=== PATIENT | male | born 1950 | race Caucasian/White ===

== ENCOUNTER → 2017-01-21 | Outpatient (CLI) | payer MEDICARE, OTHER | END | disposition home or self-care (01) | LOC: CFH 09:45 | PROVIDERS: ATTEND Internal Medicine Cardiovascular Disease | DX: Z12.2 Encounter for screening for malignant neoplasm of respiratory organs (principal); I35.8 Other nonrheumatic aortic valve disorders; I25.10 Atherosclerotic heart disease of native coronary artery without angina pectoris; I10 Essential (primary) hypertension; R91.1 Solitary pulmonary nodule; F17.211 Nicotine dependence, cigarettes, in remission; J84.10 Pulmonary fibrosis, unspecified | CPT/HCPCS: 93306; G0297 ==

== ENCOUNTER 2017-03-14 12:28 | Day surgery (SDC) | payer MEDICARE, OTHER ==
[2017-03-14] MEDS ORDERED: OMEP-110 PO (13:00)
[2017-03-14] MEDS ORDERED: MULT-658 PO (13:00)
[2017-03-14] MEDS ORDERED: ALLO300T PO (13:00)
[2017-03-14] MEDS ORDERED: APIX5TAB PO (13:00)
[2017-03-14] MEDS ORDERED: LISI-170 PO (13:00)
[2017-03-14] MEDS ORDERED: LACTATED RINGERS 1,000 ML IV SCH (13:03)
[2017-03-14] MEDS ORDERED: LIDOCAINE 1%, 2ML SQ PRN (13:30)
[2017-03-14] MEDS ORDERED: EPINEPHRINE SYRINGE 0.1 MG/ML, 10ML ONE (13:40)
[2017-03-14] MEDS ORDERED: INDOCYANINE GREEN 25 MG VIAL ONE (13:40)
[2017-03-14] MEDS ORDERED: FENTANYL PF 100 MCG/2ML ONE (13:42)
[2017-03-14] MEDS ORDERED: MIDAZOLAM 1 MG/ML, 2ML ONE ×2 (13:42→14:19)
[2017-03-14] MEDS ORDERED: EPHEDRINE 50 MG/ML, 1ML ONE (13:45)
[2017-03-14 13:50] LABS: BLOOD UREA NITROGEN 23 mg/dL (7-18)
[2017-03-14 13:54] LABS: ASPARTATE AMINO TRANSFERASE 17 U/L (15-37)
[2017-03-14] MEDS ORDERED: EPHEDRINE 50 MG/ML, 1ML IVPush PRN (14:00)
[2017-03-14] MEDS ORDERED: OXYcodone 5 MG/5 ML ORAL.SOL UDC PO PRN (14:00)
[2017-03-14] MEDS ORDERED: HYDROmorphone 1 MG/ML, 1ML IV PRN (14:00)
[2017-03-14] MEDS ORDERED: ONDANSETRON 2MG/ML, 2ML IVPush PRN (14:00)
[2017-03-14] MEDS ORDERED: HYDROcodone/APAP 7.5-325MG/15ML UDC PO PRN (14:00)
[2017-03-14] MEDS ORDERED: LABETALOL 5MG/ML, 20ML IV PRN (14:00)
[2017-03-14] MEDS ORDERED: hydrALAzine 20 MG/ML, 1ML IV PRN (14:00)
[2017-03-14] MEDS ORDERED: FENTANYL PF 100 MCG/2ML IV PRN (14:00)
[2017-03-14] MEDS ORDERED: MEPERIDINE/PF 25MG/0.5ML IVPush PRN (14:00)
[2017-03-14] MEDS ORDERED: PLEASE ENTER HEIGHT AND WEIGHT MC SCH (14:00)
[2017-03-14] MEDS ORDERED: METOPROLOL 1 MG/ML, 5ML IV PRN (14:00)
[2017-03-14] MEDS ORDERED: ALBUTEROL SULFATE 2.5 MG/3 ML NPPB PRN (14:00)
[2017-03-14] MEDS ORDERED: METOCLOPRAMIDE 5 MG/ML, 2ML IV PRN (14:00)
[2017-03-14] MEDS ORDERED: ACETAMINOPHEN 325 MG TABLET PO PRN (14:00)
[2017-03-14] MEDS ORDERED: DEXAMETHASONE 4 MG/ML, 1ML ONE (14:01)
[2017-03-14] MEDS ORDERED: ONDANSETRON 2MG/ML, 2ML ONE (14:01)
[2017-03-14] MEDS ORDERED: SUCCINYLCHOLINE 20 MG/ML, 10ML ONE (14:02)
[2017-03-14] MEDS ORDERED: PROPOFOL 10 MG/ML, 20ML ONE (14:02)
[2017-03-14] MEDS ORDERED: ROCURONIUM 10 MG/ML,10ML ONE (14:02)
== END 2017-03-14 15:55 ==
LOC: OUT 12:28
PROVIDERS: ATTEND Internal Medicine Gastroenterology
DX: K22.711 Barrett's esophagus with high grade dysplasia (principal); K44.9 Diaphragmatic hernia without obstruction or gangrene; K21.9 Gastro-esophageal reflux disease without esophagitis; Z98.890 Other specified postprocedural states; Z90.49 Acquired absence of other specified parts of digestive tract; Z87.891 Personal history of nicotine dependence; Z72.89 Other problems related to lifestyle
CPT/HCPCS: 36415; 43236; 43254; 43270; 80053; 88305; 93005; J0330; J1100; J2250; J2405; J2704; J3010

== ENCOUNTER 2017-06-20 06:48 | Day surgery (SDC) | payer MEDICARE, OTHER ==
[~2017-06-20] VITALS: Ht 182.9 cm; Wt 124.4 kg
[~2017-06-20 06:48] MED LIST: ALLO300T PO; APIX5TAB PO; LISI-170 PO; MULT-658 PO; OMEP-110 PO
[2017-06-20] MEDS ORDERED: LACTATED RINGERS 1,000 ML IV SCH (07:18)
[2017-06-20] MEDS ORDERED: WARF7.5T PO (07:33)
[2017-06-20 07:34] VITALS: BP 131/83
[2017-06-20] MEDS ORDERED: PROPOFOL 10 MG/ML, 20ML ONE ×3 (07:42→08:16)
[2017-06-20] MEDS ORDERED: FENTANYL PF 100 MCG/2ML ONE (08:49)
[2017-06-20] MEDS ORDERED: ACETAMINOPHEN 650 MG/20.3 ML UDC ONE (08:49)
[2017-06-20] MEDS ORDERED: OXYcodone 5 MG/5 ML ORAL.SOL UDC ONE (08:50)
[2017-06-20] MEDS: FENTANYL PF 100 MCG/2ML IV PRN ×2 (08:54→09:04)
[2017-06-20] MEDS ORDERED: morphine SULFATE 10 MG/ML, 1ML IV PRN (09:00)
[2017-06-20] MEDS ORDERED: ONDANSETRON 2MG/ML, 2ML IVPush PRN (09:00)
[2017-06-20] MEDS ORDERED: ACETAMINOPHEN 325 MG TABLET PO PRN (09:00)
[2017-06-20] MEDS ORDERED: OXYcodone 5 MG/5 ML ORAL.SOL UDC PO PRN (09:00)
== END 2017-06-20 10:18 ==
LOC: OUT 06:48
PROVIDERS: ATTEND Internal Medicine Gastroenterology
DX: K22.70 Barrett's esophagus without dysplasia (principal); K44.9 Diaphragmatic hernia without obstruction or gangrene; K21.9 Gastro-esophageal reflux disease without esophagitis; I10 Essential (primary) hypertension; Z90.49 Acquired absence of other specified parts of digestive tract; Z72.89 Other problems related to lifestyle; Z98.890 Other specified postprocedural states; Z87.891 Personal history of nicotine dependence; Z79.899 Other long term (current) drug therapy; I25.10 Atherosclerotic heart disease of native coronary artery without angina pectoris
CPT/HCPCS: 43229; J2704; J3010; J7120

== ENCOUNTER 2017-09-26 05:40 | Day surgery (SDC) | payer MEDICARE, OTHER ==
[~2017-09-26] VITALS: Ht 182.9 cm; Wt 119.0 kg
[~2017-09-26 05:40] MED LIST changes: +WARF7.5T PO
[2017-09-26] MEDS ORDERED: LACTATED RINGERS 1,000 ML IV SCH (06:04)
[2017-09-26 06:05] VITALS: BP 105/78
[2017-09-26 06:57] LABS: INTERNATIONAL NORMALIZED RATIO 0.97 (0.93-1.1)
[2017-09-26 07:04] LABS: ALANINE AMINOTRANSFERASE 30 U/L (12-78); ALBUMIN 3.6 g/dL (3.4-5.0); ANION GAP 7 mmol/L (5-15); CALCIUM 8.9 mg/dL (8.5-10.1); CHLORIDE 109 mmol/L (98-107); CREATININE 1.51 mg/dL (0.7-1.3)
[2017-09-26 07:05] LABS: ALKALINE PHOSPHATASE 86 U/L (45-117); BILIRUBIN,TOTAL 0.4 mg/dL (0.2-1.0); TOTAL PROTEIN 6.7 g/dL (6.4-8.2)
[2017-09-26] MEDS ORDERED: PROPOFOL 50 ML ONE (07:30)
[2017-09-26] MEDS ORDERED: FENTANYL PF 100 MCG/2ML ONE (07:30)
[2017-09-26] MEDS ORDERED: ONDANSETRON ODT 8 MG PO PRN (08:00)
[2017-09-26] MEDS ORDERED: ALBUTEROL SULFATE 2.5 MG/3 ML NPPB PRN (08:00)
[2017-09-26] MEDS ORDERED: FENTANYL PF 100 MCG/2ML IV PRN (08:00)
[2017-09-26] MEDS ORDERED: HYDROmorphone 2 MG/ML, 1ML IV PRN (08:00)
[2017-09-26] MEDS ORDERED: ACETAMINOPHEN 325 MG TABLET PO PRN (08:00)
[2017-09-26] MEDS ORDERED: LABETALOL 5MG/ML, 20ML IV PRN (08:00)
[2017-09-26] MEDS ORDERED: hydrALAzine 20 MG/ML, 1ML IV PRN (08:00)
[2017-09-26] MEDS ORDERED: OXYcodone 5 MG/5 ML ORAL.SOL UDC PO PRN (08:00)
== END 2017-09-26 09:20 | disposition home or self-care (01) ==
LOC: OUT 05:40
PROVIDERS: ATTEND Internal Medicine Gastroenterology
DX: K22.70 Barrett's esophagus without dysplasia (principal); K21.0 Gastro-esophageal reflux disease with esophagitis; Z86.718 Personal history of other venous thrombosis and embolism
CPT/HCPCS: 36415; 43239; 43270; 80053; 85610; 88305; 93005; J2704; J3010; J7120

== ENCOUNTER 2018-03-27 05:13 | Day surgery (SDC) | payer MEDICARE, OTHER ==
[~2018-03-27] VITALS: Ht 182.9 cm; Wt 126.1 kg
[2018-03-27] MEDS ORDERED: LACTATED RINGERS 1,000 ML IV SCH (06:05)
[2018-03-27] MEDS ORDERED: LISI-167 PO (06:05)
[2018-03-27] MEDS ORDERED: LACT1CAP35 PO (06:05)
[2018-03-27 06:06] VITALS: BP 112/77
[2018-03-27 06:40] LABS: INTERNATIONAL NORMALIZED RATIO 0.98 (0.93-1.1); PROTHROMBIN TIME 10.4 Seconds (9.6-11.5)
[2018-03-27 06:43] LABS: ALANINE AMINOTRANSFERASE 30 U/L (12-78); ALBUMIN 3.6 g/dL (3.4-5.0); ANION GAP 8 mmol/L (5-15); CALCIUM 8.6 mg/dL (8.5-10.1); CHLORIDE 112 mmol/L (98-107); CREATININE 1.32 mg/dL (0.7-1.3)
[2018-03-27 06:45] LABS: ALKALINE PHOSPHATASE 82 U/L (45-117); BILIRUBIN,TOTAL 0.6 mg/dL (0.2-1.0); TOTAL PROTEIN 6.7 g/dL (6.4-8.2)
[2018-03-27] MEDS ORDERED: FENTANYL PF 100 MCG/2ML ONE (06:51)
[2018-03-27] MEDS ORDERED: MIDAZOLAM 1 MG/ML, 2ML ONE (06:51)
[2018-03-27] MEDS ORDERED: PROPOFOL 10 MG/ML, 20ML ONE ×2 (06:52)
[2018-03-27] MEDS ORDERED: FENTANYL PF 100 MCG/2ML IV PRN (07:30)
[2018-03-27] MEDS ORDERED: LABETALOL 5MG/ML, 20ML IV PRN (07:30)
[2018-03-27] MEDS ORDERED: HALOPERIDOL 5 MG/ML IV PRN (07:30)
[2018-03-27] MEDS ORDERED: OXYcodone 5 MG/5 ML ORAL.SOL UDC PO PRN (07:30)
[2018-03-27] MEDS ORDERED: HYDROmorphone 2 MG/ML, 1ML IVPush PRN (07:30)
[2018-03-27] MEDS ORDERED: MEPERIDINE/PF 25MG/0.5ML IVPush PRN (07:30)
[2018-03-27] MEDS ORDERED: ACETAMINOPHEN 325 MG TABLET PO PRN (07:30)
[2018-03-27] MEDS ORDERED: hydrALAzine 20 MG/ML, 1ML IV PRN (07:30)
[2018-03-27] MEDS ORDERED: ONDANSETRON 2MG/ML, 2ML IV PRN (07:30)
== END 2018-03-27 08:50 | disposition home or self-care (01) ==
LOC: OUT 05:13
PROVIDERS: ATTEND Internal Medicine Gastroenterology
DX: K22.711 Barrett's esophagus with high grade dysplasia (principal); K44.9 Diaphragmatic hernia without obstruction or gangrene; K20.9 Esophagitis, unspecified; I10 Essential (primary) hypertension; Z79.01 Long term (current) use of anticoagulants; Z79.899 Other long term (current) drug therapy
CPT/HCPCS: 36415; 43239; 43270; 80053; 85610; 88305; 93005; J2250; J2704; J3010; J7120

== ENCOUNTER 2019-06-11 05:53 | Day surgery (SDC) | payer MEDICARE, OTHER ==
[~2019-06-11] VITALS: Ht 182.9 cm; Wt 125.0 kg
[~2019-06-11 05:53] MED LIST changes: +LACT1CAP35 PO; +LISI-167 PO
[2019-06-11] MEDS ORDERED: RIVA10TA2 PO (06:38)
[2019-06-11] MEDS ORDERED: OMEP20TA62 PO (06:40)
[2019-06-11 06:44] VITALS: BP 118/78
[2019-06-11] MEDS ORDERED: FENTANYL PF 100 MCG/2ML ONE (07:23)
[2019-06-11] MEDS ORDERED: MIDAZOLAM 1 MG/ML, 2ML ONE (07:23)
[2019-06-11] MEDS ORDERED: hydrALAzine 20 MG/ML, 1ML IV PRN (07:30)
[2019-06-11] MEDS ORDERED: PROMETHAZINE 25 MG/ML, 1ML IV PRN (07:30)
[2019-06-11] MEDS ORDERED: FENTANYL PF 100 MCG/2ML IV PRN (07:30)
[2019-06-11] MEDS ORDERED: OXYcodone 5 MG/5 ML ORAL.SOL UDC PO PRN (07:30)
[2019-06-11] MEDS ORDERED: ONDANSETRON 2MG/ML, 2ML IV PRN (07:30)
[2019-06-11] MEDS ORDERED: LABETALOL 5MG/ML, 20ML IV PRN (07:30)
[2019-06-11] MEDS ORDERED: SODIUM CHLORIDE 0.9% 1,000 ML IV SCH (07:30)
[2019-06-11] MEDS ORDERED: HYDROmorphone 2 MG/ML, 1ML IVPush PRN (07:30)
[2019-06-11 07:46] LABS: ALANINE AMINOTRANSFERASE 29 U/L (12-78); ALBUMIN 3.3 g/dL (3.4-5.0); ANION GAP 7 mmol/L (5-15); CALCIUM 8.4 mg/dL (8.5-10.1); CHLORIDE 115 mmol/L (98-107); CREATININE 1.35 mg/dL (0.7-1.3)
[2019-06-11 07:48] LABS: ALKALINE PHOSPHATASE 84 U/L (45-117); BILIRUBIN,TOTAL 0.4 mg/dL (0.2-1.0); TOTAL PROTEIN 6.2 g/dL (6.4-8.2)
[2019-06-11] MEDS ORDERED: PROPOFOL 10 MG/ML, 50ML ONE (11:01)
== END 2019-06-11 09:15 | disposition home or self-care (01) ==
LOC: OUT 05:53
PROVIDERS: ATTEND Internal Medicine Gastroenterology
DX: K22.711 Barrett's esophagus with high grade dysplasia (principal); K21.9 Gastro-esophageal reflux disease without esophagitis; K31.89 Other diseases of stomach and duodenum; I12.9 Hypertensive chronic kidney disease with stage 1 through stage 4 chronic kidney disease, or unspecified chronic kidney disease; N18.4 Chronic kidney disease, stage 4 (severe); G47.33 Obstructive sleep apnea (adult) (pediatric); Z86.010 Personal history of colon polyps; Z79.01 Long term (current) use of anticoagulants; Z90.89 Acquired absence of other organs; Z90.49 Acquired absence of other specified parts of digestive tract; Z98.890 Other specified postprocedural states; Z79.899 Other long term (current) drug therapy; Z87.891 Personal history of nicotine dependence
CPT/HCPCS: 36415; 43239; 43270; 80053; 88305; 93005; J2250; J2704; J3010; J7030